=== PATIENT | male | born 1955 | race Caucasian/White ===

== ENCOUNTER 2021-01-13 11:51 | Outpatient (CLI) | payer OTHER | END 2021-01-13 11:52 | disposition home or self-care (01) | LOC: CSHWCC 11:51 | PROVIDERS: ATTEND Nurse Practitioner Family | DX: I87.332 Chronic venous hypertension (idiopathic) with ulcer and inflammation of left lower extremity (principal); I87.2 Venous insufficiency (chronic) (peripheral); E11.622 Type 2 diabetes mellitus with other skin ulcer; L97.222 Non-pressure chronic ulcer of left calf with fat layer exposed; R60.0 Localized edema; D45 Polycythemia vera; M10.9 Gout, unspecified; M79.605 Pain in left leg; G47.33 Obstructive sleep apnea (adult) (pediatric); E66.01 Morbid (severe) obesity due to excess calories | CPT/HCPCS: 29581; 99213; G0463 ==

== ENCOUNTER 2021-03-03 14:50 | Outpatient (CLI) | payer MEDICARE, OTHER | END 2021-03-03 14:51 | disposition home or self-care (01) | LOC: CSHWCC 14:50 | PROVIDERS: ATTEND Nurse Practitioner Family | DX: I87.332 Chronic venous hypertension (idiopathic) with ulcer and inflammation of left lower extremity (principal); E11.622 Type 2 diabetes mellitus with other skin ulcer; L97.222 Non-pressure chronic ulcer of left calf with fat layer exposed; R60.0 Localized edema; D45 Polycythemia vera; E66.01 Morbid (severe) obesity due to excess calories; G47.33 Obstructive sleep apnea (adult) (pediatric); I87.2 Venous insufficiency (chronic) (peripheral); M10.9 Gout, unspecified; M79.605 Pain in left leg | CPT/HCPCS: 29581; 87070; 87205; 97139; G0463; 87077; 87186; 99213 ==

== ENCOUNTER 2021-03-10 10:54 | Outpatient (CLI) | payer MEDICARE | END 2021-03-10 10:55 | disposition home or self-care (01) | LOC: CSHWCC 10:54 | PROVIDERS: ATTEND Nurse Practitioner Family | DX: I87.332 Chronic venous hypertension (idiopathic) with ulcer and inflammation of left lower extremity (principal); E11.622 Type 2 diabetes mellitus with other skin ulcer; L97.222 Non-pressure chronic ulcer of left calf with fat layer exposed; R60.0 Localized edema; D45 Polycythemia vera; E66.01 Morbid (severe) obesity due to excess calories; G47.33 Obstructive sleep apnea (adult) (pediatric); I87.2 Venous insufficiency (chronic) (peripheral); M10.9 Gout, unspecified; M79.605 Pain in left leg | CPT/HCPCS: 29581; 97139; G0463; 99213 ==

== ENCOUNTER 2021-03-17 14:05 | Outpatient (CLI) | payer MEDICARE | END 2021-03-17 14:06 | disposition home or self-care (01) | LOC: CSHWCC 14:05 | PROVIDERS: ATTEND Nurse Practitioner Family | DX: I87.332 Chronic venous hypertension (idiopathic) with ulcer and inflammation of left lower extremity (principal); L97.222 Non-pressure chronic ulcer of left calf with fat layer exposed; D45 Polycythemia vera; E11.622 Type 2 diabetes mellitus with other skin ulcer; L98.499 Non-pressure chronic ulcer of skin of other sites with unspecified severity; G47.33 Obstructive sleep apnea (adult) (pediatric); I87.2 Venous insufficiency (chronic) (peripheral); M10.9 Gout, unspecified; M79.605 Pain in left leg; E66.01 Morbid (severe) obesity due to excess calories; R60.0 Localized edema | CPT/HCPCS: 29581; 97139; G0463; 99213 ==

== ENCOUNTER 2021-03-24 09:36 | Outpatient (CLI) | payer MEDICARE | END 2021-03-24 09:37 | disposition home or self-care (01) | LOC: CSHWCC 09:36 | PROVIDERS: ATTEND Nurse Practitioner Family | DX: I87.332 Chronic venous hypertension (idiopathic) with ulcer and inflammation of left lower extremity (principal); E11.622 Type 2 diabetes mellitus with other skin ulcer; L97.222 Non-pressure chronic ulcer of left calf with fat layer exposed; D45 Polycythemia vera; E66.01 Morbid (severe) obesity due to excess calories; G47.33 Obstructive sleep apnea (adult) (pediatric); I87.2 Venous insufficiency (chronic) (peripheral); M10.9 Gout, unspecified; M79.605 Pain in left leg; R60.0 Localized edema | CPT/HCPCS: 29581; 97139; G0463; 99213 ==

== ENCOUNTER 2021-03-31 08:41 | Outpatient (CLI) | payer MEDICARE, OTHER | END 2021-03-31 08:42 | disposition home or self-care (01) | LOC: CSHWCC 08:41 | PROVIDERS: ATTEND Nurse Practitioner Family | DX: I87.332 Chronic venous hypertension (idiopathic) with ulcer and inflammation of left lower extremity (principal); I87.2 Venous insufficiency (chronic) (peripheral); E11.622 Type 2 diabetes mellitus with other skin ulcer; L97.222 Non-pressure chronic ulcer of left calf with fat layer exposed; R60.0 Localized edema; D45 Polycythemia vera; G47.33 Obstructive sleep apnea (adult) (pediatric); M10.9 Gout, unspecified; M79.605 Pain in left leg; E66.01 Morbid (severe) obesity due to excess calories | CPT/HCPCS: 29581; 99213; G0463 ==

== ENCOUNTER 2021-04-07 16:42 | Outpatient (CLI) | payer MEDICARE, OTHER | END 2021-04-07 16:43 | disposition home or self-care (01) | LOC: CSHWCC 16:42 | PROVIDERS: ATTEND Nurse Practitioner Family | DX: I87.332 Chronic venous hypertension (idiopathic) with ulcer and inflammation of left lower extremity (principal); E11.622 Type 2 diabetes mellitus with other skin ulcer; L97.222 Non-pressure chronic ulcer of left calf with fat layer exposed; D45 Polycythemia vera; E66.01 Morbid (severe) obesity due to excess calories; G47.33 Obstructive sleep apnea (adult) (pediatric); I87.2 Venous insufficiency (chronic) (peripheral); M10.9 Gout, unspecified; M79.605 Pain in left leg; R60.0 Localized edema | CPT/HCPCS: 11042; 11045; 29581; 99213; G0463 ==

== ENCOUNTER 2021-06-30 10:06 | Outpatient (CLI) | payer MEDICARE | END 2021-06-30 10:07 | disposition home or self-care (01) | LOC: CSHWCC 10:06 | PROVIDERS: ATTEND Nurse Practitioner Family | DX: I87.322 Chronic venous hypertension (idiopathic) with inflammation of left lower extremity (principal); E11.622 Type 2 diabetes mellitus with other skin ulcer; D45 Polycythemia vera; E66.01 Morbid (severe) obesity due to excess calories; G47.33 Obstructive sleep apnea (adult) (pediatric); I87.2 Venous insufficiency (chronic) (peripheral); L97.222 Non-pressure chronic ulcer of left calf with fat layer exposed; M10.9 Gout, unspecified; M79.605 Pain in left leg; R60.0 Localized edema | CPT/HCPCS: 11042; 97139; G0463; 99213 ==

== ENCOUNTER 2021-07-14 09:43 | Outpatient (CLI) | payer MEDICARE, OTHER | END 2021-07-14 09:44 | disposition home or self-care (01) | LOC: CSHWCC 09:43 | PROVIDERS: ATTEND Nurse Practitioner Family | DX: I87.332 Chronic venous hypertension (idiopathic) with ulcer and inflammation of left lower extremity (principal); I87.2 Venous insufficiency (chronic) (peripheral); E11.622 Type 2 diabetes mellitus with other skin ulcer; L97.222 Non-pressure chronic ulcer of left calf with fat layer exposed; R60.0 Localized edema; D45 Polycythemia vera; G47.33 Obstructive sleep apnea (adult) (pediatric); M79.605 Pain in left leg; M10.9 Gout, unspecified; E66.01 Morbid (severe) obesity due to excess calories | CPT/HCPCS: 29581; 99213; G0463 ==

== ENCOUNTER 2021-08-04 09:56 | Outpatient (CLI) | payer MEDICARE, OTHER | END 2021-08-04 09:57 | disposition home or self-care (01) | LOC: CSHWCC 09:56 | PROVIDERS: ATTEND Nurse Practitioner Family | DX: I87.332 Chronic venous hypertension (idiopathic) with ulcer and inflammation of left lower extremity (principal); D45 Polycythemia vera; E11.622 Type 2 diabetes mellitus with other skin ulcer; E66.01 Morbid (severe) obesity due to excess calories; G47.33 Obstructive sleep apnea (adult) (pediatric); I87.2 Venous insufficiency (chronic) (peripheral); L97.222 Non-pressure chronic ulcer of left calf with fat layer exposed; M10.9 Gout, unspecified; M79.605 Pain in left leg; R60.0 Localized edema | CPT/HCPCS: 29581; 97139; G0463; 99213 ==

== ENCOUNTER 2021-09-29 10:56 | Outpatient (CLI) | payer MEDICARE, OTHER | END 2021-09-29 10:57 | disposition home or self-care (01) | LOC: CSHWCC 10:56 | PROVIDERS: ATTEND Nurse Practitioner Family | DX: I87.332 Chronic venous hypertension (idiopathic) with ulcer and inflammation of left lower extremity (principal); I87.2 Venous insufficiency (chronic) (peripheral); E11.622 Type 2 diabetes mellitus with other skin ulcer; L97.222 Non-pressure chronic ulcer of left calf with fat layer exposed; R60.0 Localized edema; D45 Polycythemia vera; M79.605 Pain in left leg; M10.9 Gout, unspecified; G47.33 Obstructive sleep apnea (adult) (pediatric); E66.01 Morbid (severe) obesity due to excess calories | CPT/HCPCS: 97139; G0463; 99213 ==

== ENCOUNTER 2021-11-17 13:57 | Outpatient (CLI) | payer MEDICARE | END 2021-11-17 13:58 | disposition home or self-care (01) | LOC: CSHWCC 13:57 | PROVIDERS: ATTEND Nurse Practitioner Family | DX: I87.332 Chronic venous hypertension (idiopathic) with ulcer and inflammation of left lower extremity (principal); E11.622 Type 2 diabetes mellitus with other skin ulcer; L97.222 Non-pressure chronic ulcer of left calf with fat layer exposed; R60.0 Localized edema; M79.605 Pain in left leg; M10.9 Gout, unspecified; D45 Polycythemia vera; E66.01 Morbid (severe) obesity due to excess calories; G47.33 Obstructive sleep apnea (adult) (pediatric); I87.2 Venous insufficiency (chronic) (peripheral) | CPT/HCPCS: 97139; G0463; 99212 ==

== ENCOUNTER 2021-12-15 14:38 | Outpatient (CLI) | payer MEDICARE | END 2021-12-15 14:39 | disposition home or self-care (01) | LOC: CSHWCC 14:38 | PROVIDERS: ATTEND Nurse Practitioner Family | DX: I87.332 Chronic venous hypertension (idiopathic) with ulcer and inflammation of left lower extremity (principal); I87.2 Venous insufficiency (chronic) (peripheral); E11.622 Type 2 diabetes mellitus with other skin ulcer; L97.222 Non-pressure chronic ulcer of left calf with fat layer exposed; R60.0 Localized edema; M79.605 Pain in left leg; D45 Polycythemia vera; G47.33 Obstructive sleep apnea (adult) (pediatric); M10.9 Gout, unspecified; E66.01 Morbid (severe) obesity due to excess calories ==

== ENCOUNTER 2022-06-11 11:30 | Inpatient (IN) | payer MEDICARE ==
[2022-06-10 15:45] VITALS: BMI 44.3
[2022-06-16] MEDS ORDERED: Acetaminophen 325 MG TAB ONE (11:13)
[2022-06-16] MEDS ORDERED: Gabapentin 300 MG CAP ONE (11:14)
[2022-06-16] MEDS ORDERED: Ketorolac Tromethamine 30 MG/ML VIAL ONE (11:41)
[2022-06-16] MEDS ORDERED: Lidocaine 2% PF 5 ML VIAL ONE (11:52)
[2022-06-16] MEDS ORDERED: Fentanyl 100 MCG/2 ML VIAL ONE ×3 (11:59→16:48)
[2022-06-16] MEDS ORDERED: PROPOFOL 20 ML ONE (11:59)
[2022-06-16] MEDS ORDERED: Rocuronium Bromide 10 MG/ML (10ML VIAL) ONE (11:59)
[2022-06-16] MEDS ORDERED: Tranexamic Acid 1,000 MG/10 ML VIAL ONE (12:03)
[2022-06-16] MEDS ORDERED: Neomycin-Polymyxin 1 ML AMP ONE (12:04)
[2022-06-16] MEDS ORDERED: Phenylephrine 10 MG/ML VIAL ONE ×2 (12:11→14:50)
[2022-06-16] MEDS ORDERED: Ropivacaine 0.5% HCl/PF (150 MG/30 ML VIAL) ONE (12:17)
[2022-06-16] MEDS ORDERED: Midazolam HCl 2 mg/2 ml Vial ONE (12:18)
[2022-06-16] MEDS ORDERED: Lidocaine 1% MPF 2 ML VIAL ONE (12:25)
[2022-06-16] MEDS ORDERED: Succinylcholine 200 MG/10 ml SYRINGE FS ONE (13:41)
[2022-06-16] MEDS ORDERED: CEFAZOLIN 2 GM VIAL ONE (13:43)
[2022-06-16] MEDS ORDERED: HYDROcodone/Acetaminophen 10/325 mg Tablet PO PRN ×2 (13:43)
[2022-06-16] MEDS ORDERED: Ondansetron ODT 4 MG TAB PO PRN (13:44)
[2022-06-16] MEDS ORDERED: Acetaminophen 325 MG TAB PO PRN (13:44)
[2022-06-16] MEDS ORDERED: Milk Of Magnesia 30 ML UDCUP PO PRN (13:44)
[2022-06-16] MEDS ORDERED: Sodium Chloride 0.9% 1,000 ML IV SCH (13:45)
[2022-06-16] MEDS ORDERED: CEFAZOLIN 2 GM in Sodium Chloride 0.9% 100 ML IVPB SCH ×2 (13:45→20:00)
[2022-06-16] MEDS ORDERED: HYDROcodone/Acetaminophen 5/325 mg Tablet PO PRN ×2 (14:45)
[2022-06-16] MEDS ORDERED: PHENYLEPHRINE-NS 100 MCG/ML 10 ML SYRINGE FS SCH (14:45)
[2022-06-16] MEDS ORDERED: Ondansetron PF 4 MG/2 ML Vial IVP PRN (14:45)
[2022-06-16] MEDS ORDERED: traMADol HCl 50 MG TAB PO PRN ×2 (14:45)
[2022-06-16] MEDS ORDERED: Ropivacaine 0.2% 550 ML 550 ML NERVE BLCK SCH (14:45)
[2022-06-16] MEDS ORDERED: Promethazine HCl 25 MG/ML VIAL IM PRN (14:45)
[2022-06-16] MEDS ORDERED: Zolpidem Tartrate 5 MG TAB PO PRN (14:45)
[2022-06-16] MEDS ORDERED: Ondansetron PF 4 MG/2 ML Vial ONE (15:12)
[2022-06-16] MEDS ORDERED: Dexamethasone 20 MG/5 ML VIAL ONE (15:12)
[2022-06-16] MEDS ORDERED: Glycopyrrolate 0.2 MG/ML 5 ML SYRINGE ONE (16:19)
[2022-06-16] MEDS ORDERED: SUGAMMADEX SODIUM 200 MG/2 ML VIAL ONE (16:37)
[2022-06-16] MEDS ORDERED: Ketorolac Tromethamine 30 MG/ML VIAL IVP SCH ×2 (18:00)
[2022-06-16] MEDS: Sodium Chloride 0.9% 1,000 ML IV SCH (20:32)
[2022-06-16] MEDS: Famotidine/PF 20 mg/2ml Vial SLOW IVP SCH (20:33)
[2022-06-16] MEDS: Clindamycin/D5W 900 MG in Premix Bag 1 BAG IVPB SCH ×3 (20:33→21:56)
[2022-06-16] MEDS: CEFAZOLIN 2 GM in Sodium Chloride 0.9% 100 ML IVPB SCH (22:07)
[2022-06-17] MEDS: Ketorolac Tromethamine 30 MG/ML VIAL IVP SCH ×2 (02:03→08:09)
[2022-06-17] MEDS: Clindamycin/D5W 900 MG in Premix Bag 1 BAG IVPB SCH ×2 (02:04→08:10)
[2022-06-17] MEDS: CEFAZOLIN 2 GM in Sodium Chloride 0.9% 100 ML IVPB SCH (05:18)
[2022-06-17] MEDS ORDERED: Enoxaparin Sodium 30 MG/0.3 ML SYRINGE ONE (07:57)
[2022-06-17] MEDS: Famotidine/PF 20 mg/2ml Vial SLOW IVP SCH (08:09)
[2022-06-17] MEDS ORDERED: Enoxaparin Sodium 30 MG/0.3 ML SYRINGE SC SCH (09:00)
[2022-06-17] MEDS: Sodium Chloride 0.9% 1,000 ML IV SCH (11:46)
[2022-06-17 12:58] VITALS: BP 129/69; TEMP 98
== END 2022-06-17 13:50 | disposition home or self-care (01) | DRG 483 ==
LOC: CSHERHOLD 06-16 10:59 → CSHTELE 06-16 18:46
PROVIDERS: ADMIT Orthopaedic Surgery; ATTEND Orthopaedic Surgery
PROC: 0RPJ0JZ Removal of Synthetic Substitute from Right Shoulder Joint, Open Approach (ICD-10-PCS; principal; 2022-06-16)
PROC: 0RRJ0JZ Replacement of Right Shoulder Joint with Synthetic Substitute, Open Approach (ICD-10-PCS; 2022-06-16)
DX: T84.028A Dislocation of other internal joint prosthesis, initial encounter (principal); M25.311 Other instability, right shoulder; M25.511 Pain in right shoulder; F41.9 Anxiety disorder, unspecified; G89.29 Other chronic pain; Y83.8 Other surgical procedures as the cause of abnormal reaction of the patient, or of later complication, without mention of misadventure at the time of the procedure
CPT/HCPCS: 87070; 87205; 88304; 88331; A4306; C1713; C1762; C1776; J0690; J1100; J1650; J1885; J2001; J2250; J2370; J2405; J2704; J2795; J3010; J3370; J3490; J7050; S0028

== ENCOUNTER 2022-06-11 14:09 | Outpatient (CLI) | payer OTHER ==
[2022-06-11 15:06] LABS: #Basophils 0.1 10x3/uL (0.0-0.2); #Eosinphils 0.3 10x3/uL (0.0-0.5); #Monocytes 0.7 10x3/uL (0.0-1.1); %Basophils 0.7 % (0.0-2.0); %Eosinophils 3.3 % (0.0-6.0); %Lymphocytes 21.6 % (18.0-47.0); %Monocytes 8.5 % (0.0-10.0); %Neutrophils 65.4 % (40.0-75.0); Hemoglobin 16.5 g/dL (13.5-17.5); Mean Corpuscular Hemoglobin 29.7 pg (27.0-33.0); Mean Corpuscular Volume 90.1 fl (81.2-95.1); Mean Platelet Volume 10.7 fl (7.4-10.4); Platelet Count 194 10x3/uL (150-450); RBC Distribution Width 14.4 % (11.5-14.5); Red Blood Cell (RBC) Count 5.55 10x6/uL (4.32-5.72); White Blood Cell (WBC) Count 7.7 10x3/uL (3.5-10.5)
[2022-06-11 15:21] LABS: Anion Gap 13 mmol/L (10-20); BUN (Urea Nitrogen) 17 mg/dL (8.4-25.7); Calc. Creatinine Clearance 0 mL/min (70-130); Calcium 9.2 mg/dL (7.8-10.44); Carbon Dioxide 29 mmol/L (23-31); Chloride 103 mmol/L (98-107); Estimated GFR 77; Glucose 96 mg/dL (80-115); Potassium 4.2 mmol/L (3.5-5.1); Sodium 141 mmol/L (136-145)
[2022-06-11 20:34] LABS: Hemoglobin A1c 5.7 % (4.0-6.0)
== END 2022-06-11 14:10 | disposition home or self-care (01) ==
LOC: CSHLAB 14:09
PROVIDERS: ATTEND Orthopaedic Surgery
DX: Z01.812 Encounter for preprocedural laboratory examination (principal); Z20.822 Contact with and (suspected) exposure to COVID-19; M25.511 Pain in right shoulder; Z96.611 Presence of right artificial shoulder joint
CPT/HCPCS: 80048; 82306; 83036; 85025; 87081; 87811

== ENCOUNTER 2022-10-06 11:06 | Day surgery (SDC) | payer MEDICARE ==
[2022-10-04 15:12] VITALS: BMI 44.3
[2022-10-06] MEDS ORDERED: Gabapentin 300 MG CAP ONE (11:11)
[2022-10-06] MEDS ORDERED: Ketorolac Tromethamine 30 MG/ML VIAL ONE (11:11)
[2022-10-06] MEDS ORDERED: Acetaminophen 325 MG TAB ONE (11:12)
[2022-10-06] MEDS ORDERED: Midazolam HCl 2 mg/2 ml Vial ONE (13:48)
[2022-10-06] MEDS ORDERED: CEFAZOLIN 2 GM VIAL ONE (13:51)
[2022-10-06] MEDS ORDERED: Ketamine 50 MG/ML (10ML VIAL) ONE (13:56)
[2022-10-06] MEDS ORDERED: Fentanyl 100 MCG/2 ML VIAL ONE (14:06)
[2022-10-06] MEDS ORDERED: Bupivacaine PF 0.5% 30 ML VIAL ONE (14:45)
[2022-10-06] MEDS ORDERED: Rocuronium Bromide 10 MG/ML (10ML VIAL) ONE (14:56)
[2022-10-06] MEDS ORDERED: Succinylcholine 200 MG/10 ml SYRINGE FS ONE (14:58)
[2022-10-06] MEDS ORDERED: Dexamethasone 4 mg/ml Vial ONE (15:17)
[2022-10-06] MEDS ORDERED: Ondansetron PF 4 MG/2 ML Vial ONE (15:17)
[2022-10-06] MEDS ORDERED: ePHEDrine Sulfate 50 MG/10 ML VIAL ONE (15:36)
[2022-10-06] MEDS ORDERED: PROPOFOL 20 ML ONE (15:50)
== END 2022-10-06 17:25 | disposition home or self-care (01) ==
LOC: CSHSDC 11:06
PROVIDERS: ATTEND Orthopaedic Surgery
PROC: 0RGV04Z Fusion of Left Metacarpophalangeal Joint with Internal Fixation Device, Open Approach (ICD-10-PCS; principal; 2022-10-06)
PROC: 0PCV0ZZ Extirpation of Matter from Left Finger Phalanx, Open Approach (ICD-10-PCS; 2022-10-06)
PROC: 0PUV07Z Supplement Left Finger Phalanx with Autologous Tissue Substitute, Open Approach (ICD-10-PCS; 2022-10-06)
DX: T84.82XA Fibrosis due to internal orthopedic prosthetic devices, implants and grafts, initial encounter (principal); M85.442 Solitary bone cyst, left hand; K21.9 Gastro-esophageal reflux disease without esophagitis; Z68.41 Body mass index [BMI] 40.0-44.9, adult; E66.01 Morbid (severe) obesity due to excess calories; Z96.611 Presence of right artificial shoulder joint; Z79.82 Long term (current) use of aspirin; Z86.73 Personal history of transient ischemic attack (TIA), and cerebral infarction without residual deficits; Z79.899 Other long term (current) drug therapy; Y79.2 Prosthetic and other implants, materials and accessory orthopedic devices associated with adverse incidents
CPT/HCPCS: C1713; J1100; J1885; J2250; J2405; J2704; J3010; S0020